=== PATIENT | male | born 1940 | race Caucasian/White ===

== ENCOUNTER 2020-05-09 19:33 | Inpatient (IN) | payer MEDICARE, MEDICAID, SELFPAY ==
[2020-05-09] VITALS (7 sets, daily range): BP systolic 114–150; BP diastolic 59–108; PULSE 95–108; RESP 20–29; TEMP 36.6–37.7; O2SAT 87–98; BMI 34.4; BMI 37.1
--- NOTE | 2020-05-09 19:40 | EKG12_ITS ---
Test Reason : DYSRHYTHMIA Blood Pressure : / mmHG Vent. Rate : 106 BPM Atrial Rate : 106 BPM P-R Int : 186 ms QRS Dur : 096 ms QT Int : 348 ms P-R-T Axes : 052 -07 042 degrees QTc Int : 462 ms Sinus tachycardia with Premature atrial complexes Nonspecific ST and T wave abnormality Abnormal ECG Confirmed by CLAUDIA BEAR, SUREKHA ([id number]), design editor ANDREIA CARLOS ([id number]) on 05/11/2020 10:31:21 AM Referred By: ENIO Confirmed By:SUREKHA TAYLOR MD
--- NOTE | 2020-05-09 19:50 | ED.DCSUM_ITS ---
History of Present Illness Chief Complaint: Shortness of Breath Informant: Patient, Family Onset: Weeks Maximum Severity: Mild Narrative: Patient brought in by daughter who reports for about a week or so he has had cough some shortness of breath poor p.o. 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 His symptoms of shortness of breath lack of p.o. intake intensified today he was brought in for evaluation Past Medical History - Allergies and Home Meds Allergies/Adverse Reactions: Allergies egg Allergy (Verified 04/28/15 10:54) Nausea/Vom/Diarrhea milk Allergy (Verified 04/28/15 16:48) Nausea/Vom/Diarrhea Primary Care Physician: Rosendo Espinosa MD [Primary Care Provider] - Past Medical History: - - Hypertension diabetes COPD home inhaler machine no no need for oxygen Smoking Status: Never smoker - Family History Paternal Family History: Reports: No pertinent history Maternal Family History: Reports: No pertinent history Review of Systems General: Reports: -. Denies: Chills, Fever, Sweats Eyes: Denies: Visual changes - bilaterally, Diplopia ENT: Denies: Rhinorrhea, Sore throat Cardiovascular: Denies: Chest pain, Palpitations Respiratory: Reports: Dyspnea, Cough. Denies: Dyspnea on exertion Gastrointestinal: Denies: Abdominal pain, Nausea, Vomiting, Diarrhea, Melena, Hematochezia Genitourinary: Denies: Dysuria, Hematuria, Frequency Musculoskeletal: Denies: Back pain, Extremity Pain Skin: Denies: Rash, Wounds Neurological: Denies: Headache, Weakness, Numbness Physical Exam Vital Signs/Narrative: Vital Signs Temp Pulse Resp BP Pulse Ox 05/09/20 19:33 98.0 F 108 H 24 H 150/108 H 87 General: Well nourished, Well developed, No Acute Distress Head: Normocephalic, Atraumatic Eyes: Perrl, EOMI ENT: Moist mucous membranes, No rhinorrhea Neck: Supple, Nontender Cardiovascular: Regular rate, Regular rhythm, No murmurs Respiratory: No distress, Chest nontender, Wheezing, Diminished, Decreased Air Movement Abdomen: Soft, Nontender, Nondistended, Normal bowel sounds Back: Nontender, Normal Inspection Extremities: Nontender, No edema Skin: Normal color, No rash Neurological: Alert, Oriented x3, Cranial nerves II-XII grossly intact, Normal Strength, Normal Sensation Psychological: Normal affect, Normal Mood Diagnostic/Tx/Re-eval - Medical Decision Making The patient's pulse ox on room air in triage was 85% he was brought back to the bed he is speaking in full sentences he just complains of diffuse weakness that is generalized the daughter fell than the other information as above the differential is rather extensive so ED evaluation with screening labs chest x- ray Covid flu screens and will reevaluate he is not known to have ever required oxygen he occasionally uses his handheld nebulizer at home The patient's ED screening labs are generally unremarkable creatinine slightly elevated about 1.4, D-dimer elevated at 0.8, EKG shows a sinus tachycardia rate of about 100 no acute injury pattern, nonspecific changes, chest x-ray 1 view to my review shows nothing acute given all the above, he sent for CTA, CTA shows nonspecific findings at the bases no PE, eventually coronavirus screen came back positive All the above is oxygen requirement we placed him on oxygen his pulse ox is now 93% on 2 L he is resting comfortably spoke with the hospitalist team he will be admitted for further management Admit stable Final impression coronavirus 19 pneumonia and infection, acute renal injury, dehydration hypoxemia ED Disposition - Plan for ED Patient: Diagnosis: Coronavirus 19 pneumonia hypoxemia Referrals: Rosendo Espinosa MD [Primary Care Provider] -
--- NOTE | 2020-05-09 20:20 | RAD_ITS ---
STUDY: X-RAY CHEST REASON FOR EXAM: Male, 79 years old. Weakness. Cough. Shortness of breath since Friday. TECHNIQUE: Single AP portable view of the chest. COMPARISON: 04/27/2015. FINDINGS: Persistent elevation of the right hemidiaphragm. There is no new infiltrate or mass. There is no demonstrated pleural abnormality. Stable cardiomegaly. Normal mediastinum and rosie. Normal visualized pulmonary arteries. There is atherosclerotic tortuosity of the aortic arch and descending thoracic aorta. There are diffuse degenerative changes of the visualized thoracic spine. There is degenerative osteoarthritis of the bilateral shoulders. There is no demonstrated abnormality of the visualized soft tissue structures of the upper abdomen. RAD/Chest 1 View (Portable) IMPRESSION: No acute cardiopulmonary disease or major interval change. Electronically Signed: Gibran Aceves DO at 20:46 EST Tel [phone], Service support ,
[2020-05-09 20:50] LABS: Absolute Lymphocyte Count 0.43 X10^3/uL (0.83-4.51); Absolute Neutrophil Count 3.1 X10^3/uL (2.0-7.7); Hematocrit 38.1 % (40-54); Hemoglobin 12.2 g/dL (13.0-16.5); Lymphocyte # 0.43 X10^3/ul (4.0); Lymphocyte % 10.3 % (19-41); Mean Corpuscular Volume 96.7 fL (80-94); Mean Platelet Vol. 10.7 fl (6.2-12.0); Monocyte# 0.69 X10^3/uL; Monocyte% 16.5 % (0-10); NRBC Flagged by Analyzer 0 % (0-5); Neutrophil # 3.05 X10^3/uL (2.7-7.7); Neutrophil % 72.7 % (47-70); POSITIVE DIFFERENTIAL YES; Platelet Count 143 K/mm3 (150-450); RBC Distribution Width SD 49.6 fl (35.1-43.9); Red Blood Count 3.94 M/mm3 (4.6-6.2); White Blood Count 4.2 K/mm3 (4.4-11.0)
[2020-05-09 20:53] LABS: Differential Indicated SCAN CRITERIA MET
[2020-05-09 20:58] LABS: Platelet Estimate ADEQUATE (ADEQ); Red Cell Morphology N CHROM NORMAL (NORM C&C)
[2020-05-09 21:09] LABS: Anisocytosis 1+; Macrocytosis 1+
[2020-05-09 21:12] LABS: Anion Gap 6 (5-15); BUN 22 mg/dL (7-18); BUN/Creat Ratio 16.7 RATIO (10-20); Calcium,Total 8.7 mg/dL (8.5-10.1); Chloride 102 mmol/L (98-107); Creatinine, Serum 1.32 mg/dL (0.70-1.30); EST Glomerular Filtration Rate 56 mL/min (>60); Est Glom Filt Rate - Afr Amer 67 mL/min (>60); Estimated Creatinine Clearance 47.62 ml/min; Glucose 157 mg/dL (74-106); Potassium 3.8 mmol/L (3.5-5.1); Sodium Level 136 mmol/L (136-145)
[2020-05-09 21:26] LABS: BNP,B-Type NATRIURETIC PEPTIDE 30.3 pg/mL (0-100)
[2020-05-09 21:27] LABS: D-Dimer Quantitative (DVT/PE) 0.83 FEU/ug/m (0.27-0.49)
--- NOTE | 2020-05-09 21:40 | CT_ITS ---
STUDY: CTA CHEST REASON FOR EXAM: Male, 79 years old. WEAKNESS, COUGH, SOB, HX CVA, HTN, NH, GB RADIATION DOSAGE (If Supplied By Facility): CTDIvol = ( 19.79 ) mGy, DLP = ( 607.93 ) mGycm TECHNIQUE: The examination was performed with the intravenous administration of IV 100mL [id number]-370. Post-processing of the angiographic images was performed, with multiplanar reformation and 3D reconstruction. Individualized dose optimization techniques were used for this CT. COMPARISON: Chest x-ray of the same day. FINDINGS: Normal enhancement of the main pulmonary artery and right and left pulmonary arteries. There is limited enhancement of the bilateral peripheral pulmonary arteries. There is no demonstrated pulmonary embolism. There is aneurysmal dilatation of the ascending aorta. The transverse diameter of the ascending aorta measures 49 mm''s. There is no demonstrated aortic dissection. There is moderate cardiomegaly. Normal mediastinum. Normal hilar regions. Normal visualized trachea and bronchi. There is elevation of the right hemidiaphragm. There is otherwise normal lung volumes. Bilateral patchy ill-defined pulmonary opacities are seen worse on the right. Findings could represent patchy atelectasis and/or scattered infiltrates. Probable scarring in the right posterior costophrenic angle. No gross effusions. There are degenerative changes of thoracic spine. Normal visualized upper abdomen. CT/CTA Chest W/WO Contrast IMPRESSION: No evidence for PE. Cardiomegaly. Ascending aortic aneurysm without dissection. Markedly elevated left hemidiaphragm with low right lung volume. Scattered bilateral pulmonary opacities worse on the right. Electronically Signed: Sekou Churchill MD at 22:08 EST , Service support ,
[2020-05-09] MEDS: Acetaminophen 500 MG Tablet 1000 MG PO (22:01)
--- NOTE | 2020-05-09 22:26 | HP.PCM_ITS ---
History of Present Illness Date of Admission: 05/09/20 Chief Complaint: shortness of breath, lethargy, cough The patient is a 79 year old M with a PMH as outlined who was admitted via the ED on 05/09/2020 with a complaint of shortness of breath, witha cough as well as poor oral intake and lack of energy. He was found to have sats in the 80s. Review of systems was otherwise negative. COVID test done was positive. Vitals showed temp of 99.9F, with RR of 29, and NJ of 100 as well as blood pressure of 114/59. He required 2 L to go up to 97%. Chemistry showed creatinine of 1.32 but initial troponin was negative and BNP was 30.3. CBC showed WBC of 4.2 and hemoglobin of 12.2 with platelets of 143. Initial D-dimer was elevated at 0.83 and CTA of the chest done showed no evidence of PE but showed cardiomegaly and ascending aortic aneurysm without dissection as well as a markedly elevated left hemidiaphragm with low right lung volume and scattered bilateral pulmonary opacities worse on the right. This x-ray showed no acute cardiopulmonary disease or major interval change. He has been admitted to be managed for acute hypoxic respiratory insufficiency due to COVID-19 infection. 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) Allergies egg Allergy (Verified 04/28/15 10:54) Nausea/Vom/Diarrhea milk Allergy (Verified 04/28/15 16:48) Nausea/Vom/Diarrhea Home Medications: Ambulatory Orders Medication Instructions Recorded Losartan/Hydrochlorothiazide 1 tab PO DAILY 04/27/15 [Hyzaar 50-12.5 Tablet] Pravastatin [Pravachol] 40 mg PO QHS 04/27/15 metFORMIN HCl [Glucophage] 500 mg PO BIDCM 04/27/15 Clopidogrel Bisulfate [Plavix] 75 mg PO DAILY #30 tablet 04/29/15 Metoprolol Tartrate [Lopressor 50 mg PO BID 05/09/20 (Beta Vika)] Omeprazole 20 mg PO DAILY 05/09/20 Pioglitazone [Actos] 15 mg PO DAILY 05/09/20 Sertraline HCl 100 mg PO DAILY 05/09/20 Surgical History: no surgical history Psychiatric History: No pertinent psych hx Lives: With Family Smoking Status: Never smoker Tobacco Use: Non-smoker Alcohol: None Drugs: None - *Family History Paternal History Items: No pertinent history Maternal History Items: No pertinent history Review of Systems Constitutional: Reports: Anorexia, Chills, Fever, Malaise, Weakness Eyes: Denies: Blurred vision HEENT: Denies: Head Aches, Sinus Congestion, Sinus Drainage Cardiovascular: Denies: Chest Pain, Palpitations Respiratory: Reports: Cough, Shortness of Breath, Shortness of breath at rest, Shortness of breath upon exertion, Sputum production Gastrointestinal: Denies: Abdominal Pain, Nausea, Vomiting Genitourinary: Denies: Dysuria Musculoskeletal: Denies: Joint Pain, Joint Tenderness Skin: Denies: Rash, Wounds Neurological: Denies: Numbness, Tingling, Focal weakness Psychiatric: Denies: Anxiety, Depression, Homicidal Ideations, Suicidal Ideations Hematologic/ Lymphatic: Denies: Easy Bruising, Easy Bleeding VTE Information - Inpt Only VTE Present on Admission: No VTE Pharm Prophylaxis ordered?: Yes - Physical Exam Vitals/I&O's: Vital Signs Temp Pulse Resp BP Pulse Ox 99.9 F H 100 29 H 114/59 L 97 05/09/20 22:04 05/09/20 22:04 05/09/20 22:04 05/09/20 22:04 05/09/20 22:04 Oxygen Flow Rate (L/min) 2 Oxygen Delivery Method Nasal Cannula Weight: 240 lb Body Mass Index (BMI) 34.4 Finger Stick Blood Glucose 252 General: Alert, Oriented x3, Cooperative, Lethargic HEENT: Atraumatic, PERRLA, EOMI, Normocephalic Oral: Dry Mucosa Neck: Supple, No JVD, Negative Carotid Bruits Lungs: Short of Breath, Tachypneic, - - diminished breath sounds bibasally, on 2L of oxygen Cardiovascular: Regular rate, Normal S1, Normal S2, No murmurs Abdomen: Bowel Sounds Present, Soft, Non Tender Extremities: No clubbing, No cyanosis, No edema, Capillary Refill Less than 3 Seconds Skin: No rashes, No breakdown Musculoskeletal: No Tenderness to Palpation of Joints or Extremities Lymphatic: No Cervical, Supraclavicular, or Inguinal Adenopathy Neurological: Cranial nerves II-XII grossly intact, Neuro grossly intact, Motor Exam 5/5 strength throughout Psych/Mental Status: Normal Affect, Appropriate, Alert and oriented to time, place, person, mood and affect Microbiology Past 72 Hours 05/09/20 19:57 Mucosa - Nasopharyngeal SARS-CoV-2 Antigen (Rapid) - Final SARS-CoV-2 (COVID 19) 05/09/20 19:57 Mucosa - Nasopharyngeal Influenza Types A,B Direct FA (MARIA DE JESUS) - Final Laboratory Results 05/09/20 20:40: WBC 4.2 L, RBC 3.94 L, Hgb 12.2 L, Hct 38.1 L, MCV 96.7 H, MCH 31.0, MCHC 32.0, RDW Std Deviation 49.6 H, RDW Coeff of Kj 14.0, Plt Count 143 L, MPV 10.7, Immature Gran % (Auto) 0.500, Neut % (Auto) 72.7 H, Lymph % (Auto) 10.3 L, [place] % (Auto) 16.5 H, Eos % (Auto) 0.0, Baso % (Auto) 0.0, Absolute Neuts (auto) 3.1, Absolute Lymphs (auto) 0.43 L, Nucleated RBC % 0, Differential Comment SEE COMMENT, Diff Path Review May foll, Platelet Estimate ADEQUATE, RBC Morphology N CHROM, Anisocytosis 1+, Macrocytosis 1+ 05/09/20 20:40: Sodium 136, Potassium 3.8, Chloride 102, Carbon Dioxide 28.0, Anion Gap 6, BUN 22 H, Creatinine 1.32 H, Estim Creat Clear Calc 47.62, Est GFR (MDRD) Af Amer 67, Est GFR (MDRD) Non-Af 56 L, BUN/Creatinine Ratio 16.7, Glucose 157 H, Calcium 8.7, Troponin I < 0.015 05/09/20 20:40: B-Natriuretic Peptide 30.3 05/09/20 21:01: D-Dimer Quant (PE/DVT) 0.83 H* Diagnostic Data Chest X-Ray 05/09/20 20:20 IMPRESSION: No acute cardiopulmonary disease or major interval change. Electronically Signed: Gibran Aceves DO at 20:46 EST Tel [phone], Service support , Chest CTA 05/09/20 21:40 IMPRESSION: No evidence for PE. Cardiomegaly. Ascending aortic aneurysm without dissection. Markedly elevated left hemidiaphragm with low right lung volume. Scattered bilateral pulmonary opacities worse on the right. Electronically Signed: Sekou Churchill MD at 22:08 EST , Service support , Assessment/Plan All Active Problems Ischemic stroke (Acute) 79 y/o admitted with a complaint of shortness of breath and cough #Acute hypoxic respiratory insufficiency due to COVID 19 infection * admit to covid unit * titrate oxygen to maintain sats >90% * start IV decadrone and remdesivir * consult ID * breathing treatment with bronchodilators * hold off on antibiotics o/a of no evidence of bacterial pneumonia * Hydrate with IV fluids. * #History of CAD: On Plavix. #Type 2 diabetes mellitus: * On Metformin and pioglitazone. Insulin sliding scale. Checks AC at bedtime. * Hold metformin since he just received contrast with his CTA chest #Hyperlipidemia: On statin #Hypertension: On losartan and hydrochlorothiazide. #Depression: Sertraline. DVT prophylaxis: Lovenox 30 mg twice daily COde status: full code * Patient and his daughter counseled extensively about different types of CODE STATUS including full code, DNR CCA and DNR CCA. Patient elects to be full c ode. Total [id number] time 18 minutes. Inpatient E&M: 19579 Init Hosp L3 Procedures: 25129 Advncd Care Plan 30 Min
[2020-05-09 23:28] LABS: Fibrinogen 557 mg/dl (203-444)
[2020-05-09] MEDS: dexAMETHasone 10 MG/ML Vial 6 MG IV (23:48)
[2020-05-09] MEDS: 0.9% Saline Lock 10 ML Syringe IV (23:48)
[2020-05-09] MEDS: 0.9% Normal Saline 1,000 ML 125 ML IV (23:49)
[2020-05-10] VITALS (14 sets, daily range): BP systolic 120–149; BP diastolic 69–88; PULSE 63–89; RESP 17–18; TEMP 36.7–37.1; O2SAT 94–96
[2020-05-10 01:22] LABS: Alkaline Phosphatase 62 U/L (45-117); LDH 175 U/L (87-241)
[2020-05-10 01:24] LABS: Procalcitonin 0.14 ng/mL (0.00-0.09)
[2020-05-10 03:58] LABS: Absolute Lymphocyte Count 0.37 X10^3/uL (0.83-4.51); Absolute Neutrophil Count 3.3 X10^3/uL (2.0-7.7); Hematocrit 39.8 % (40-54); Hemoglobin 12.2 g/dL (13.0-16.5); Lymphocyte # 0.37 X10^3/ul (4.0); Lymphocyte % 9.3 % (19-41); Mean Corp Hgb Conc 30.7 g/dL (32-36); Mean Corpuscular Hgb 30.3 pg (27.0-32.0); Mean Platelet Vol. 10.9 fl (6.2-12.0); Monocyte# 0.33 X10^3/uL; Monocyte% 8.3 % (0-10); NRBC Flagged by Analyzer 0 % (0-5); Neutrophil # 3.25 X10^3/uL (2.7-7.7); Neutrophil % 81.9 % (47-70); POSITIVE DIFFERENTIAL YES; Platelet Count 144 K/mm3 (150-450); RBC Distribution Width SD 51.8 fl (35.1-43.9); Red Blood Count 4.02 M/mm3 (4.6-6.2)
[2020-05-10 04:09] LABS: Differential Indicated SCAN CRITERIA MET
[2020-05-10 04:42] LABS: ALB/GLOB Ratio 0.8 RATIO (0.9-2.4); AST(SGOT) 53 U/L (15-37); Alanine Aminotransfer ALT/SGPT 49 U/L (16-61); Alkaline Phosphatase 66 U/L (45-117); Anion Gap 6 (5-15); BUN 22 mg/dL (7-18); BUN/Creat Ratio 17.9 RATIO (10-20); Calcium,Total 8.2 mg/dL (8.5-10.1); Chloride 104 mmol/L (98-107); Creatinine, Serum 1.23 mg/dL (0.70-1.30); EST Glomerular Filtration Rate 60 mL/min (>60); Est Glom Filt Rate - Afr Amer 73 mL/min (>60); Estimated Creatinine Clearance 51.11 ml/min; Glucose 164 mg/dL (74-106); Potassium 3.8 mmol/L (3.5-5.1); Sodium Level 138 mmol/L (136-145)
[2020-05-10] MEDS: Insulin Lispro 100 UNIT/ML INSULN.PEN SC ×4 (06:30→20:03)
[2020-05-10 06:40] LABS: Bedside Glucose 171 mg/dL (70-110)
--- NOTE | 2020-05-10 07:15 | PCM.PN.HOSP ---
Subjective: Patient fatigued, notes when he attempted to get up and move in the room with staff he was significantly short of breath with accessory muscle usage. He notes ongoing coughing and dyspnea but denies any current fever, chills, nausea, emesis, abdominal pain or diarrhea. He does report decreased appetite. Objective: Physical Examination: General: awake, alert, oriented x 3 and cooperative, seated upright in the [facility] surgical bedside chair, fatigued, ill-appearing. Skin: normal color, turgor, no icterus, cyanosis. HEENT: AT/NC, EOMI, PERRLA, mildly dry MM. Lungs: Diminished breath sounds, greater bases, moderate effort, no rales, ronchi or wheezing. Heart: Regular rate and rhythm; no gallop, rub audible. Abdomen: soft, NTTP, ND, normal BS. Extremities: no cyanosis, clubbing, or edema. Neurological: patient awake, alert, oriented as noted; cognitive function intact; pupils equally reactive to light and accomodation; cranial nerves II-XII grossly normal, moving all 4 extremities, no focal deficits, strength moderately to severely globally decreased secondary to acute presentation. Psychiatric: affect appears fatigued, flat, ill-appearing, no acute evidence of depressive or anxiety feelings. Vitals/I&O's: Vital Signs Temp Pulse Resp BP Pulse Ox 98.1 F 89 18 127/69 H 96 05/10/20 05:47 05/10/20 05:47 05/10/20 05:47 05/10/20 05:47 05/10/20 05:47 Oxygen Flow Rate (L/min) 2 Oxygen Delivery Method Nasal Cannula Weight: 258 lb 13.163 oz Body Mass Index (BMI) 37.1 Finger Stick Blood Glucose 252 Intake and Output for Last 24 Hours 05/08/20 05/09/20 05/10/20 23:59 23:59 23:59 Intake Total 502.08 / 502.08 450 / 450 Output Total 300 / 300 Balance 502.08 / 502.08 150 / 150 Microbiology Past 72 Hours 05/10/20 06:00 Urine, Clean Catch Legionella Antigen - Final 05/10/20 06:00 Urine, Clean Catch Streptococcus pneumoniae Antigen (M - Final 05/09/20 19:57 Mucosa - Nasopharyngeal SARS-CoV-2 Antigen (Rapid) - Final SARS-CoV-2 (COVID 19) 05/09/20 19:57 Mucosa - Nasopharyngeal Influenza Types A,B Direct FA (MARIA DE JESUS) - Final Laboratory Results 05/09/20 20:40: WBC 4.2 L, RBC 3.94 L, Hgb 12.2 L, Hct 38.1 L, MCV 96.7 H, MCH 31.0, MCHC 32.0, RDW Std Deviation 49.6 H, RDW Coeff of Kj 14.0, Plt Count 143 L, MPV 10.7, Immature Gran % (Auto) 0.500, Neut % (Auto) 72.7 H, Lymph % (Auto) 10.3 L, [place] % (Auto) 16.5 H, Eos % (Auto) 0.0, Baso % (Auto) 0.0, Absolute Neuts (auto) 3.1, Absolute Lymphs (auto) 0.43 L, Nucleated RBC % 0, Differential Comment SEE COMMENT, Diff Path Review July foll, Platelet Estimate ADEQUATE, RBC Morphology N CHROM, Anisocytosis 1+, Macrocytosis 1+ 05/09/20 20:40: Sodium 136, Potassium 3.8, Chloride 102, Carbon Dioxide 28.0, Anion Gap 6, BUN 22 H, Creatinine 1.32 H, Estim Creat Clear Calc 47.62, Est GFR (MDRD) Af Amer 67, Est GFR (MDRD) Non-Af 56 L, BUN/Creatinine Ratio 16.7, Glucose 157 H, Calcium 8.7, Troponin I < 0.015 05/09/20 20:40: B-Natriuretic Peptide 30.3 05/09/20 21:01: D-Dimer Quant (PE/DVT) 0.83 H* 05/09/20 21:12: Fibrinogen 557 H 05/10/20 00:50: Alkaline Phosphatase 62, Lactate Dehydrogenase 175, Troponin I 0.024, C-React Prot Ext Range 39.20 H 05/10/20 00:50: Procalcitonin 0.14 H 05/10/20 03:38: WBC 4.0 L, RBC 4.02 L, Hgb 12.2 L, Hct 39.8 L, MCV 99.0 H, MCH 30.3, MCHC 30.7 L, RDW Std Deviation 51.8 H, RDW Coeff of Kj 14.0, Plt Count 144 L, MPV 10.9, Immature Gran % (Auto) 0.500, Neut % (Auto) 81.9 H, Lymph % (Auto) 9.3 L, [place] % (Auto) 8.3, Eos % (Auto) 0.0, Baso % (Auto) 0.0, Absolute Neuts (auto) 3.3, Absolute Lymphs (auto) 0.37 L, Nucleated RBC % 0, Diff Path Review July05/10/20 03:38: Sodium 138, Potassium 3.8, Chloride 104, Carbon Dioxide 28.0, Anion Gap 6, BUN 22 H, Creatinine 1.23, Estim Creat Clear Calc 51.11, Est GFR (MDRD) Af Amer 73, Est GFR (MDRD) Non-Af 60, BUN/Creatinine Ratio 17.9, Glucose 164 H, Calcium 8.2 L, Total Bilirubin 0.40, AST 53 H, ALT 49, Alkaline Phosphatase 66, Total Protein 7.0, Albumin 3.0 L, Globulin 4.0, Albumin/Globulin Ratio 0.8 L 05/10/20 03:38: Troponin I 0.016 05/10/20 03:38: Magnesium Pending 05/10/20 06:29: POC Glucose 171 H Current Medications Acetaminophen (Acetaminophen 325 Mg Tablet) 650 mg PO Q6H PRN PRN PRN Reason: Pain Score 1-10/Temp > 100.7 F Albuterol Sulfate (Albuterol Ih 8.5 Gm (Proair) Inhaler (200 Puffs)) 4 - 8 puff INHALATION Q4H PRN PRN PRN Reason: Dyspnea, wheezing Clopidogrel Bisulfate (Clopidogrel Bisulfate 75 Mg Tablet) 75 mg PO DAILY [facility] Dexamethasone Sodium Phosphate (Dexamethasone 10 Mg/Ml Vial) 6 mg IV DAILY [facility] Last Admin: 05/09/20 23:48 Dose: 6 mg Documented by: Enoxaparin Sodium (Enoxaparin 30 Mg/0.3 Ml Syringe) 30 mg SC BID [facility] Hydralazine HCl (Hydralazine 20 Mg/Ml Vial) 10 mg IV Q4H PRN PRN PRN Reason: SBP > 160 Hydrochlorothiazide (Hydrochlorothiazide 12.5mg) 12.5 mg PO DAILY [facility] Sodium Chloride () 1,000 mls @ 125 mls/hr IV .Q8H [facility] Stop: 05/10/20 15:07 Last Infusion: 05/10/20 01:48 Dose: 125 mls/hr Documented by: Insulin Human Lispro (Insulin Lispro 100 Unit/Ml Insuln.Pen) 0 unit SC ACHS [facility]; Protocol Last Admin: 05/10/20 06:30 Dose: 1 u Documented by: Losartan Potassium (Losartan Potassium 50 Mg Tablet) 50 mg PO DAILY [facility] Metoprolol Tartrate (Metoprolol Tartrate 50 Mg Tablet) 50 mg PO BID [facility] Nitroglycerin (Nitroglycerin (Inpatient Use) 0.4 Mg Tab.Subl) 0.4 mg SUBLINGUAL Q5M PRN PRN Reason: CARDIAC/CHEST PAIN Nystatin (Nystatin Powder 15gm Bottle) 1 applic TOPICAL TID [facility]YRON; Protocol Ondansetron HCl (Ondansetron 4 Mg/2 Ml Vial) 4 mg IV Q8H PRN PRN PRN Reason: NAUSEA/VOMITING Pantoprazole Sodium (Pantoprazole Sodium 20 Mg Tablet) 20 mg PO DAILY [facility] Pioglitazone HCl (Pioglitazone Hydrochloride 15 Mg Tablet) 15 mg PO DAILY [facility] Pravastatin Sodium (Pravastatin 40 Mg Tablet) 40 mg PO QHS [facility] Sertraline HCl (Sertraline 100 Mg Tablet) 100 mg PO DAILY [facility] Sodium Chloride (0.9% Saline Lock 10 Ml Syringe) 10 - 40 ml IV UD PRN PRN Reason: SALINE FLUSH Last Admin: 05/09/20 23:48 Dose: 10 ml Documented by: STROKE Vital Signs/Narrative: Vital Signs Temp Pulse Resp BP Pulse Ox 05/10/20 05:47 98.1 F 89 18 127/69 H 96 05/10/20 03:49 68 Medical Necessity - Tobacco Use Smoking Status: Never smoker Tobacco Use: Non-smoker Assessment/Plan All Active Problems Ischemic stroke (Acute) The patient is a 79 y/o M w/ PMHx: Hx AAA, HTN, HLD, PAD, Diabetes mellitus type II who presents to the [facility] ED on 05/09/20 with history of increasing fatigue, malaise, cough with recent poor oral intake with noted hypoxia with positive Covid testing upon ED presentation. 1. Acute Hypoxia secondary to Acute Bilateral Pneumonia secondary to Acute Viral Syndrome, COVID-19: ED work-up including chest x-ray with no acute cardiopulmonary findings, CTPA with no evidence of pulmonary emboli, evidence cardiomegaly, evidence ascending aortic aneurysm without dissection, markedly elevated left hemidiaphragm with low right lung volume, scattered bilateral pulmonary opacities worse on the right consistent with Covid, D-dimer 0.83, fibrinogen 557, CBC with WC 4.2, hemoglobin 12.2, platelet 143 with lymphopenia, LDH 175, troponin less than 0.015, CRP 39.20, BNP 30.3, procalcitonin 0.14, EKG sinus tachycardia with no acute evidence of ischemia. Patient mated to the Covid unit, maintained on oxygen with wean as tolerated to room air, PRN albuterol, HOB, IS parameters w/ pending sputum cultures, respiratory viral panel, noted negative urine antigens, continue supportive care including q 2 hour turning including prone given no prone bed availability and judicious hydration, closely monitor for worsening status for ARDS and multiorgan failure, will consult Infectious disease, will continue IV decadron x 10 doses and IV remdesivir but defer to discretion of Infectious disease. 2. Hypertension: Continue home regimen including losartan, metoprolol, hydrochlorothiazide with hold parameters, PRN hydralazine. 3. Diabetes mellitus type II: Hold Metformin regimen especially given CTPA recently, ADA diet, accu checks w/ ISS. 4. PAD: We will continue patient home Plavix, metoprolol, losartan, statin therapy. 5. Anxiety and depression: We will continue patient home sertraline regimen. 6. GERD: We will continue patient home PPI. 7. History of AAA: CTPA as noted with ascending aortic aneurysm without evidence dissection, encourage continued outpatient monitoring. 8. DVT prophylaxis: SCDs, Lovenox. 9. CODE STATUS: Full code. Inpatient E&M: 40821 Subs Hosp L2
[2020-05-10 07:42] LABS: Magnesium 1.8 mg/dL (1.6-2.6)
[2020-05-10] MEDS: Pioglitazone Hydrochloride 15 MG Tablet PO (08:33)
[2020-05-10] MEDS: dexAMETHasone 10 MG/ML Vial 6 MG IV (08:34)
[2020-05-10] MEDS: Losartan Potassium 50 MG Tablet PO (08:34)
[2020-05-10] MEDS: Metoprolol Tartrate 50 MG Tablet PO ×2 (08:35→20:04)
[2020-05-10] MEDS: hydroCHLOROthiazide 12.5mg 12.5 MG PO (08:35)
[2020-05-10] MEDS: Enoxaparin 30 MG/0.3 ML Syringe SC ×2 (08:36→20:08)
[2020-05-10] MEDS: Sertraline 100 MG Tablet PO (08:36)
[2020-05-10] MEDS: Clopidogrel Bisulfate 75 MG Tablet PO (08:36)
[2020-05-10] MEDS: 0.9% Saline Lock 10 ML Syringe IV ×2 (08:37→16:48)
[2020-05-10] MEDS: Pantoprazole Sodium 20 MG Tablet PO (08:44)
--- NOTE | 2020-05-10 10:57 | CASEMGMT ---
RN CM Note: attempted to contact patient. Unavailable to speak with CM at this time. Marie PEREIRAN RN ACM
[2020-05-10 13:32] LABS: Pathologist Review Reviewed
[2020-05-10 13:34] LABS: Pathologist Review Reviewed
[2020-05-10 13:45] LABS: Bedside Glucose 189 mg/dL (70-110)
[2020-05-10] MEDS: Nystatin Powder 15gm Bottle 1 APPLIC TOPICAL ×2 (15:04→20:08)
--- NOTE | 2020-05-10 15:37 | PCM.HP.ID ---
Problem List (1) COVID-19 Status: Acute Reason for Consult: covid Consulted by: Dr. Hernandez History of Present Illness: The patient is a 79 year old M presented with about a week of not feeling well, chills, headache, cough, and progressive dyspnea. was sick first, now improving. He has some change in taste and smell. Came to ED, sats of 87%, admitted on dex and remdesivir. Feeling a little better today. Full ROS performed and neg except as noted above. 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) Allergies/Adverse Reactions: Allergies egg Allergy (Verified 04/28/15 10:54) Nausea/Vom/Diarrhea milk Allergy (Verified 04/28/15 16:48) Nausea/Vom/Diarrhea Home Medications: Ambulatory Orders Medication Instructions Recorded Losartan/Hydrochlorothiazide 1 tab PO DAILY 04/27/15 [Hyzaar 50-12.5 Tablet] Pravastatin [Pravachol] 40 mg PO QHS 04/27/15 metFORMIN HCl [Glucophage] 500 mg PO BIDCM 04/27/15 Clopidogrel Bisulfate [Plavix] 75 mg PO DAILY #30 tablet 04/29/15 Metoprolol Tartrate [Lopressor 50 mg PO BID 05/09/20 (Beta Vika)] Omeprazole 20 mg PO DAILY 05/09/20 Pioglitazone [Actos] 15 mg PO DAILY 05/09/20 Sertraline HCl 100 mg PO DAILY 05/09/20 - Social History Tobacco Use: non-smoker Vital Signs Temp Pulse Resp BP Pulse Ox 98.5 F 63 18 120/70 94 05/10/20 15:05 05/10/20 15:05 05/10/20 15:05 05/10/20 15:05 05/10/20 15:05 Oxygen Flow Rate (L/min) 2 Oxygen Delivery Method Nasal Cannula Weight: 117.4 kg Body Mass Index (BMI) 37.1 Finger Stick Blood Glucose 252 Microbiology Past 72 Hours 05/10/20 08:44 Gram Stain - Final Sputum, Expectorated/Coughed 05/10/20 07:35 Respiratory Panel (PCR) - Final Mucosa - Nasopharyngeal 05/10/20 06:00 Legionella Antigen - Final Urine, Clean Catch Streptococcus pneumoniae Antigen (M - Final 05/09/20 19:57 SARS-CoV-2 Antigen (Rapid) - Final Mucosa - Nasopharyngeal SARS-CoV-2 (COVID 19) Influenza Types A,B Direct FA (MARIA DE JESUS) - Final Laboratory Tests Past 24 Hrs 05/09/20 05/09/20 05/09/20 20:40 20:40 20:40 WBC 4.2 L RBC 3.94 L Hgb 12.2 L Hct 38.1 L MCV 96.7 H MCH 31.0 MCHC 32.0 RDW Std Deviation 49.6 H RDW Coeff of Kj 14.0 Plt Count 143 L MPV 10.7 Immature Gran % (Auto) 0.500 Neut % (Auto) 72.7 H Lymph % (Auto) 10.3 L Castro % (Auto) 16.5 H Eos % (Auto) 0.0 Baso % (Auto) 0.0 Absolute Neuts (auto) 3.1 Absolute Lymphs (auto) 0.43 L Nucleated RBC % 0 Differential Comment SEE COMMENT Diff Path Review Reviewed Platelet Estimate ADEQUATE RBC Morphology N CHROM Anisocytosis 1+ Macrocytosis 1+ Fibrinogen D-Dimer Quant (PE/DVT) Sodium 136 Potassium 3.8 Chloride 102 Carbon Dioxide 28.0 Anion Gap 6 BUN 22 H Creatinine 1.32 H Estim Creat Clear Calc 47.62 Est GFR (MDRD) Af Amer 67 Est GFR (MDRD) Non-Af 56 L BUN/Creatinine Ratio 16.7 Glucose 157 H Calcium 8.7 Magnesium Total Bilirubin AST ALT Alkaline Phosphatase Lactate Dehydrogenase Troponin I < 0.015 C-React Prot Ext Range B-Natriuretic Peptide 30.3 Total Protein Albumin Globulin Albumin/Globulin Ratio Procalcitonin 05/09/20 05/09/20 05/10/20 21:01 21:12 00:50 WBC RBC Hgb Hct MCV MCH MCHC RDW Std Deviation RDW Coeff of Kj Plt Count MPV Immature Gran % (Auto) Neut % (Auto) Lymph % (Auto) Castro % (Auto) Eos % (Auto) Baso % (Auto) Absolute Neuts (auto) Absolute Lymphs (auto) Nucleated RBC % Differential Comment Diff Path Review Platelet Estimate RBC Morphology Anisocytosis Macrocytosis Fibrinogen 557 H D-Dimer Quant (PE/DVT) 0.83 H* Sodium Potassium Chloride Carbon Dioxide Anion Gap BUN Creatinine Estim Creat Clear Calc Est GFR (MDRD) Af Amer Est GFR (MDRD) Non-Af BUN/Creatinine Ratio Glucose Calcium Magnesium Total Bilirubin AST ALT Alkaline Phosphatase 62 Lactate Dehydrogenase 175 Troponin I 0.024 C-React Prot Ext Range 39.20 H B-Natriuretic Peptide Total Protein Albumin Globulin Albumin/Globulin Ratio Procalcitonin 05/10/20 05/10/20 05/10/20 00:50 03:38 03:38 WBC 4.0 L RBC 4.02 L Hgb 12.2 L Hct 39.8 L MCV 99.0 H MCH 30.3 MCHC 30.7 L RDW Std Deviation 51.8 H RDW Coeff of Kj 14.0 Plt Count 144 L MPV 10.9 Immature Gran % (Auto) 0.500 Neut % (Auto) 81.9 H Lymph % (Auto) 9.3 L Castro % (Auto) 8.3 Eos % (Auto) 0.0 Baso % (Auto) 0.0 Absolute Neuts (auto) 3.3 Absolute Lymphs (auto) 0.37 L Nucleated RBC % 0 Differential Comment Diff Path Review Reviewed Platelet Estimate RBC Morphology Anisocytosis Macrocytosis Fibrinogen D-Dimer Quant (PE/DVT) Sodium 138 Potassium 3.8 Chloride 104 Carbon Dioxide 28.0 Anion Gap 6 BUN 22 H Creatinine 1.23 Estim Creat Clear Calc 51.11 Est GFR (MDRD) Af Amer 73 Est GFR (MDRD) Non-Af 60 BUN/Creatinine Ratio 17.9 Glucose 164 H Calcium 8.2 L Magnesium Total Bilirubin 0.40 AST 53 H ALT 49 Alkaline Phosphatase 66 Lactate Dehydrogenase Troponin I C-React Prot Ext Range B-Natriuretic Peptide Total Protein 7.0 Albumin 3.0 L Globulin 4.0 Albumin/Globulin Ratio 0.8 L Procalcitonin 0.14 H 05/10/20 05/10/20 03:38 03:38 WBC RBC Hgb Hct MCV MCH MCHC RDW Std Deviation RDW Coeff of Kj Plt Count MPV Immature Gran % (Auto) Neut % (Auto) Lymph % (Auto) Castro % (Auto) Eos % (Auto) Baso % (Auto) Absolute Neuts (auto) Absolute Lymphs (auto) Nucleated RBC % Differential Comment Diff Path Review Platelet Estimate RBC Morphology Anisocytosis Macrocytosis Fibrinogen D-Dimer Quant (PE/DVT) Sodium Potassium Chloride Carbon Dioxide Anion Gap BUN Creatinine Estim Creat Clear Calc Est GFR (MDRD) Af Amer Est GFR (MDRD) Non-Af BUN/Creatinine Ratio Glucose Calcium Magnesium 1.8 Total Bilirubin AST ALT Alkaline Phosphatase Lactate Dehydrogenase Troponin I 0.016 C-React Prot Ext Range B-Natriuretic Peptide Total Protein Albumin Globulin Albumin/Globulin Ratio Procalcitonin - Other Studies Radiology: [] reviewed Other Studies: [] Route of nutrition/ use of supplements: [] Nutritional Intake: [] IV Site: [] Mack Catheter: [] - Physical Exam General: Alert, Cooperative, No apparent distress HEENT: Atraumatic, PERRLA, EOMI Neck: Supple, No Nodes Lungs: Diminished Cardiovascular: Regular rate, Regular Rhythm Abdomen: Soft, Non Tender, Non-Distended Extremities: No edema Skin: No rashes IV Site: Peripheral, without redness Musculoskeletal: No Tenderness to Palpation of Joints or Extremities Neurological: Cranial nerves II-XII grossly intact - Assessment/Plan Antibiotics: [] Assessment/Plan: [] covid with hypoxia - sx started about a week prior to admit, recently sick and starting to recover. D-dimer 0.8. Will treat with 10 days of dex, and will continue remdesivir. On lovenox 30mg bid. CT showed no PE. Plan on 20 days total of quarantine. Will follow, thank you.
[2020-05-10 17:30] LABS: Bedside Glucose 212 mg/dL (70-110)
[2020-05-10] MEDS: Pravastatin 40 MG Tablet PO (20:03)
[2020-05-11] VITALS (17 sets, daily range): BP systolic 114–140; BP diastolic 59–84; PULSE 57–85; RESP 18–20; TEMP 36.7–37; O2SAT 87–96
[2020-05-11 04:21] LABS: Bedside Glucose 215 mg/dL (70-110)
[2020-05-11 06:35] LABS: Bedside Glucose 115 mg/dL (70-110)
[2020-05-11 06:39] LABS: Absolute Lymphocyte Count 0.78 X10^3/uL (0.83-4.51); Absolute Neutrophil Count 3.2 X10^3/uL (2.0-7.7); Basophil# 0.01 X10^3/uL; Basophil% 0.2 % (0-1); Hematocrit 40.4 % (40-54); Hemoglobin 12.6 g/dL (13.0-16.5); Lymphocyte # 0.78 X10^3/ul (4.0); Lymphocyte % 16.5 % (19-41); Mean Corp Hgb Conc 31.2 g/dL (32-36); Mean Corpuscular Hgb 30.6 pg (27.0-32.0); Mean Corpuscular Volume 98.1 fL (80-94); Mean Platelet Vol. 10.4 fl (6.2-12.0); Monocyte# 0.74 X10^3/uL; Monocyte% 15.6 % (0-10); NRBC Flagged by Analyzer 0 % (0-5); Neutrophil # 3.17 X10^3/uL (2.7-7.7); Neutrophil % 67.1 % (47-70); Platelet Count 184 K/mm3 (150-450); RBC Distribution Width SD 50.6 fl (35.1-43.9); Red Blood Count 4.12 M/mm3 (4.6-6.2); White Blood Count 4.7 K/mm3 (4.4-11.0)
[2020-05-11] MEDS: Nystatin Powder 15gm Bottle 1 APPLIC TOPICAL ×3 (06:44→20:39)
[2020-05-11 07:10] LABS: ALB/GLOB Ratio 0.7 RATIO (0.9-2.4); AST(SGOT) 47 U/L (15-37); Alanine Aminotransfer ALT/SGPT 53 U/L (16-61); Albumin, Serum 2.9 g/dL (3.2-5.0); Alkaline Phosphatase 63 U/L (45-117); Anion Gap 4 (5-15); BUN 27 mg/dL (7-18); BUN/Creat Ratio 24.8 RATIO (10-20); Calcium,Total 8.7 mg/dL (8.5-10.1); Chloride 104 mmol/L (98-107); Creatinine, Serum 1.09 mg/dL (0.70-1.30); EST Glomerular Filtration Rate 70 mL/min (>60); Est Glom Filt Rate - Afr Amer 84 mL/min (>60); Estimated Creatinine Clearance 57.67 ml/min; Globulin 4.1 g/dL (2.2-4.2); Glucose 133 mg/dL (74-106); Potassium 3.9 mmol/L (3.5-5.1); Sodium Level 138 mmol/L (136-145)
--- NOTE | 2020-05-11 07:29 | PCS.PANDOC ---
PANDEMIC DOCUMENTATION INITIATED: Date: 03/06/2020 Time:
--- NOTE | 2020-05-11 07:39 | PCM.PN.HOSP ---
Patient Problems: Active and Suspected Problems COVID-19 (Acute) Subjective: Patient overnight with no acute events per self and per nursing report however he is significantly fatigued and extremely debilitated requiring significant assistance. Patient's elderly at home and following lengthy discussions patient is amenable to skilled facility especially given his current status, likely oxygen needs at discharge and debility requiring notable assistance to perform daily activities. Patient does report that he is coughing less and breathing has improved but still significantly limited especially with activity. Patient denies fevers, chills, nausea, emesis, abdominal pain, chest pain. Objective: Physical Examination: General: awake, alert, oriented x 3 and cooperative, seated upright in the [facility] medical surgical bedside chair, fatigued but less ill-appearing than day prior. Skin: normal color, turgor, no icterus, cyanosis. HEENT: AT/NC, EOMI, PERRLA, improved MMM. Lungs: Diminished breath sounds, greater bases, moderate effort, no rales, ronchi or wheezing. Heart: Regular rate and rhythm; no gallop, rub audible. Abdomen: soft, NTTP, ND, normal BS. Extremities: no cyanosis, clubbing, or edema. Neurological: patient awake, alert, oriented as noted; cognitive function intact; pupils equally reactive to light and accomodation; cranial nerves II-XII grossly normal, moving all 4 extremities, no focal deficits, strength remains moderately to severely globally decreased secondary to acute presentation. Psychiatric: affect appears fatigued, mildly irritable today, no acute evidence of depressive or anxiety feelings. Vitals/I&O's: Vital Signs Temp Pulse Resp BP Pulse Ox 98.5 F 71 19 H 140/66 H 95 05/11/20 02:15 05/11/20 07:17 05/11/20 05:00 05/11/20 02:15 05/11/20 05:00 Oxygen Flow Rate (L/min) 2 Oxygen Delivery Method Nasal Cannula Weight: 258 lb 13.163 oz Body Mass Index (BMI) 37.1 Finger Stick Blood Glucose 252 Intake and Output for Last 24 Hours 05/09/20 05/10/20 05/11/20 23:59 23:59 23:59 Intake Total 502.08 / 502.08 2317.92 / 2557.92 440 / 440 Output Total 450 / 450 350 / 350 Balance 502.08 / 502.08 1867.92 / 2107.92 90 / 90 Microbiology Past 72 Hours 05/10/20 08:44 Sputum, Expectorated/Coughed Gram Stain - Final 05/10/20 07:35 Mucosa - Nasopharyngeal Respiratory Panel (PCR) - Final 05/10/20 06:00 Urine, Clean Catch Legionella Antigen - Final 05/10/20 06:00 Urine, Clean Catch Streptococcus pneumoniae Antigen (M - Final 05/09/20 19:57 Mucosa - Nasopharyngeal SARS-CoV-2 Antigen (Rapid) - Final SARS-CoV-2 (COVID 19) 05/09/20 19:57 Mucosa - Nasopharyngeal Influenza Types A,B Direct FA (MARIA DE JESUS) - Final Laboratory Results 05/09/20 20:40: Diff Path Review Reviewed 05/10/20 03:38: Diff Path Review Reviewed 05/10/20 03:38: Magnesium 1.8 05/10/20 10:49: POC Glucose 189 H 05/10/20 16:36: POC Glucose 212 H 05/10/20 20:02: POC Glucose 215 H 05/11/20 06:25: WBC 4.7, RBC 4.12 L, Hgb 12.6 L, Hct 40.4, MCV 98.1 H, MCH 30.6, MCHC 31.2 L, RDW Std Deviation 50.6 H, RDW Coeff of Kj 14.0, Plt Count 184, MPV 10.4, Immature Gran % (Auto) 0.600, Neut % (Auto) 67.1, Lymph % (Auto) 16.5 L, [place] % (Auto) 15.6 H, Eos % (Auto) 0.0, Baso % (Auto) 0.2, Absolute Neuts (auto) 3.2, Absolute Lymphs (auto) 0.78 L, Nucleated RBC % 0 05/11/20 06:25: Sodium 138, Potassium 3.9, Chloride 104, Carbon Dioxide 30.0, Anion Gap 4 L, BUN 27 H, Creatinine 1.09, Estim Creat Clear Calc 57.67, Est GFR (MDRD) Af Amer 84, Est GFR (MDRD) Non-Af 70, BUN/Creatinine Ratio 24.8 H, Glucose 133 H, Calcium 8.7, Total Bilirubin 0.30, AST 47 H, ALT 53, Alkaline Phosphatase 63, Total Protein 7.0, Albumin 2.9 L, Globulin 4.1, Albumin/Globulin Ratio 0.7 L 05/11/20 06:28: POC Glucose 115 H Current Medications Acetaminophen (Acetaminophen 325 Mg Tablet) 650 mg PO Q6H PRN PRN PRN Reason: Pain Score 1-10/Temp > 100.7 F Albuterol Sulfate (Albuterol Sulfate 8 Gm Inhaler (60 Puffs)) 4 - 8 puff INHALATION Q4H PRN PRN PRN Reason: Dyspnea, wheezing Clopidogrel Bisulfate (Clopidogrel Bisulfate 75 Mg Tablet) 75 mg PO DAILY [facility] Last Admin: 05/10/20 08:36 Dose: 75 mg Documented by: Dexamethasone (Dexamethasone 4 Mg Tablet) 6 mg PO DAILY [facility] Stop: 05/18/20 10:01 Enoxaparin Sodium (Enoxaparin 30 Mg/0.3 Ml Syringe) 30 mg SC BID [facility] Last Admin: 05/10/20 20:08 Dose: 30 mg Documented by: Hydralazine HCl (Hydralazine 20 Mg/Ml Vial) 10 mg IV Q4H PRN PRN PRN Reason: SBP > 160 Hydrochlorothiazide (Hydrochlorothiazide 12.5mg) 12.5 mg PO DAILY [facility] Last Admin: 05/10/20 08:35 Dose: 12.5 mg Documented by: Remdesivir 100 mg/ Sodium (Chloride) 250 mls @ 125 mls/hr IV DAILY [facility]; Protocol Stop: 05/13/20 11:59 Last Infusion: 05/10/20 20:11 Dose: Infused Documented by: Insulin Human Lispro (Insulin Lispro 100 Unit/Ml Insuln.Pen) 0 unit SC ACHS [facility]; Protocol Last Admin: 05/11/20 07:10 Dose: Not Given Documented by: Losartan Potassium (Losartan Potassium 50 Mg Tablet) 50 mg PO DAILY [facility] Last Admin: 05/10/20 08:34 Dose: 50 mg Documented by: Metoprolol Tartrate (Metoprolol Tartrate 50 Mg Tablet) 50 mg PO BID [facility] Last Admin: 05/10/20 20:04 Dose: 50 mg Documented by: Nitroglycerin (Nitroglycerin (Inpatient Use) 0.4 Mg Tab.Subl) 0.4 mg SUBLINGUAL Q5M PRN PRN Reason: CARDIAC/CHEST PAIN Nystatin (Nystatin Powder 15gm Bottle) 1 applic TOPICAL TID [facility]; Protocol Last Admin: 05/11/20 06:44 Dose: 1 applicatio Documented by: Ondansetron HCl (Ondansetron 4 Mg/2 Ml Vial) 4 mg IV Q8H PRN PRN PRN Reason: NAUSEA/VOMITING Pantoprazole Sodium (Pantoprazole Sodium 20 Mg Tablet) 20 mg PO DAILY [facility] Last Admin: 05/10/20 08:44 Dose: 20 mg Documented by: Pioglitazone HCl (Pioglitazone Hydrochloride 15 Mg Tablet) 15 mg PO DAILY [facility] Last Admin: 05/10/20 08:33 Dose: 15 mg Documented by: Pravastatin Sodium (Pravastatin 40 Mg Tablet) 40 mg PO QHS [facility] Last Admin: 05/10/20 20:03 Dose: 40 mg Documented by: Sertraline HCl (Sertraline 100 Mg Tablet) 100 mg PO DAILY [facility] Last Admin: 05/10/20 08:36 Dose: 100 mg Documented by: Sodium Chloride (0.9% Saline Lock 10 Ml Syringe) 10 - 40 ml IV UD PRN PRN Reason: SALINE FLUSH Last Admin: 05/10/20 16:48 Dose: 10 ml Documented by: STROKE Vital Signs/Narrative: Vital Signs Pulse Resp Pulse Ox 05/11/20 07:17 71 05/11/20 06:00 59 L 05/11/20 05:00 19 H 95 Medical Necessity - Tobacco Use Smoking Status: Never smoker Tobacco Use: Non-smoker Assessment/Plan All Active Problems COVID-19 (Acute) Ischemic stroke (Acute) The patient is a 79 y/o M w/ PMHx: Hx AAA, HTN, HLD, PAD, Diabetes mellitus type II who presents to the [facility] ED on 05/09/20 with history of increasing fatigue, malaise, cough with recent poor oral intake with noted hypoxia with positive Covid testing upon ED presentation. 1. Acute Hypoxia secondary to Acute Bilateral Pneumonia secondary to Acute Viral Syndrome, COVID-19: ED work-up including chest x-ray with no acute cardiopulmonary findings, CTPA with no evidence of pulmonary emboli, evidence cardiomegaly, evidence ascending aortic aneurysm without dissection, markedly elevated left hemidiaphragm with low right lung volume, scattered bilateral pulmonary opacities worse on the right consistent with Covid, D-dimer 0.83, fibrinogen 557, CBC with WC 4.2, hemoglobin 12.2, platelet 143 with lymphopenia, LDH 175, troponin less than 0.015, CRP 39.20, BNP 30.3, procalcitonin 0.14, EKG sinus tachycardia with no acute evidence of ischemia. Patient admitted to the Covid unit, maintained on oxygen with wean as tolerated to room air, PRN albuterol, HOB, IS parameters w/ preliminary sputum culture with normal respiratory kobi with final pending, respiratory viral panel negative, noted negative urine antigens, continue supportive care including q 2 hour turning including prone given no prone bed availability and judicious hydration, closely monitor for worsening status for ARDS and multiorgan failure, infectious disease consulted and following with requested 20 total days of quarantine, continue plan 10 days of dexamethasone and remdesivir, maintained on Lovenox 30 mg twice daily with CTPA with no evidence of acute pulmonary emboli. 2. Hypertension: Continue home regimen including losartan, metoprolol, hydrochlorothiazide with hold parameters, PRN hydralazine. 3. Diabetes mellitus type II: Hold Metformin regimen especially given CTPA recently, ADA diet, accu checks w/ ISS. 4. PAD: We will continue patient home Plavix, metoprolol, losartan, statin therapy. 5. Anxiety and depression: We will continue patient home sertraline regimen. 6. GERD: We will continue patient home PPI. 7. History of AAA: CTPA as noted with ascending aortic aneurysm without evidence dissection, encourage continued outpatient monitoring. 8. DVT prophylaxis: SCDs, Lovenox. 9. CODE STATUS: Full code. Inpatient E&M: 40425 Subs Hosp L2
[2020-05-11] MEDS: Enoxaparin 30 MG/0.3 ML Syringe SC ×2 (09:41→20:53)
[2020-05-11] MEDS: Pioglitazone Hydrochloride 15 MG Tablet PO (09:42)
[2020-05-11] MEDS: dexAMETHasone 4 MG Tablet 6 MG PO (09:42)
[2020-05-11] MEDS: Pantoprazole Sodium 20 MG Tablet PO (09:42)
[2020-05-11] MEDS: 0.9% Saline Lock 10 ML Syringe IV (09:43)
[2020-05-11] MEDS: hydroCHLOROthiazide 12.5mg 12.5 MG PO (09:43)
[2020-05-11] MEDS: Metoprolol Tartrate 50 MG Tablet PO ×2 (09:43→20:37)
[2020-05-11] MEDS: Sertraline 100 MG Tablet PO (09:43)
[2020-05-11] MEDS: Clopidogrel Bisulfate 75 MG Tablet PO (09:43)
[2020-05-11] MEDS: Losartan Potassium 50 MG Tablet PO (09:43)
--- NOTE | 2020-05-11 11:15 | CASEMGMT ---
Social Work Received phone call from Lalitha at [facility] whom pt has services through. Lalitha is [employer] and pt has a medical alert and home delivered meals. Pt is eligible for home health aids but has never felt the need for them. SW will follow for d/c needs and notify [facility] of discharge plans. MALENA Banks
--- NOTE | 2020-05-11 11:42 | CASEMGMT ---
RN CM Assessment Note Chart reviewed. Presentation: shortness of breath, lack of energy. Diagnosis: Covid 19 PCP: Dr. Rosendo Espinosa Insurance: ;[facility] Preferred Pharmacy: unknown Prescription Benefit: yes LNOK: [facility] Living Arrangements: Lives in one story home with . Was moderately independent. Was mod-independent with ADL's prior to admission and did most home chores. Tranportation: does not drive DME: wheeled walker, raised toilet seat, extended tub bench. HHC: patient active with [facility]- medical alert and meals. Patient DC Goals: undetermined DC Plan: undetermined. PT/OT evals completed and patient ambulated 4 feet. May need SNF on dc. CM available for discharge planning coordination. Contact CM for any concerns/needs that may arise. Marie ESCOBAR RN ACM
[2020-05-11 11:50] LABS: Bedside Glucose 133 mg/dL (70-110)
--- NOTE | 2020-05-11 12:57 | CASEMGMT ---
Addendum entered by Supriya Hawkins 05/11/20 14:07: Social Work Return call from [facility] and they are able to accept pt. Insurance preauth will need obtained prior to pt discharge. Phone call to pt and updated and she is understanding and agreeable. Plan: [facility], pending precMALENA Onofre Original Note: Social Work SW spoke with therapists and physician who are recommending short term SNF placement prior to return home. SW placed call to pt room and spoke with pt. Pt is hard of hearing but does seem to understand SW. Pt informed of reason for placement and options that are in network with insurance and would met medical needs. Pt stating he would like to stay local but had no preference. Pt gave SW permission to call . Phone call to pt Alise and explained recommendations for SNF. Alise is agreeable. SW provided names of facilities including medicare star ratings, consistent with pt preferred geographic region, medical needs and insurance network. Alise's first choice is [facility]. Phone call to Iris at [facility] and they do have beds available. Referral faxed. SW will await determination if they can accept pt. Plan: [facility], pending acceptance and insurance precert MALENA Banks
[2020-05-11] MEDS: Insulin Lispro 100 UNIT/ML INSULN.PEN SC ×2 (16:44→20:39)
[2020-05-11 20:20] LABS: Bedside Glucose 188 mg/dL (70-110)
[2020-05-11] MEDS: Pravastatin 40 MG Tablet PO (20:37)
[2020-05-11 23:06] LABS: Bedside Glucose 176 mg/dL (70-110)
[2020-05-12] VITALS (12 sets, daily range): BP systolic 109–139; BP diastolic 64–77; PULSE 58–75; RESP 18–20; TEMP 36.7–36.9; O2SAT 84–96
[2020-05-12 06:00] LABS: Absolute Lymphocyte Count 0.79 X10^3/uL (0.83-4.51); Absolute Neutrophil Count 3.8 X10^3/uL (2.0-7.7); Basophil# 0.01 X10^3/uL; Basophil% 0.2 % (0-1); Hematocrit 38.2 % (40-54); Hemoglobin 11.9 g/dL (13.0-16.5); Lymphocyte # 0.79 X10^3/ul (4.0); Lymphocyte % 14.5 % (19-41); Mean Corp Hgb Conc 31.2 g/dL (32-36); Mean Corpuscular Hgb 30.4 pg (27.0-32.0); Mean Corpuscular Volume 97.7 fL (80-94); Mean Platelet Vol. 10.6 fl (6.2-12.0); Monocyte# 0.86 X10^3/uL; Monocyte% 15.8 % (0-10); NRBC Flagged by Analyzer 0 % (0-5); Neutrophil # 3.76 X10^3/uL (2.7-7.7); Neutrophil % 69.1 % (47-70); Platelet Count 199 K/mm3 (150-450); RBC Distribution Width CV 13.9 % (11.6-14.6); RBC Distribution Width SD 49.3 fl (35.1-43.9); Red Blood Count 3.91 M/mm3 (4.6-6.2); White Blood Count 5.4 K/mm3 (4.4-11.0)
[2020-05-12 06:30] LABS: ALB/GLOB Ratio 0.7 RATIO (0.9-2.4); AST(SGOT) 39 U/L (15-37); Alanine Aminotransfer ALT/SGPT 47 U/L (16-61); Albumin, Serum 2.8 g/dL (3.2-5.0); Alkaline Phosphatase 59 U/L (45-117); Anion Gap 5 (5-15); BUN 29 mg/dL (7-18); BUN/Creat Ratio 29.3 RATIO (10-20); Calcium,Total 8.5 mg/dL (8.5-10.1); Chloride 103 mmol/L (98-107); Creatinine, Serum 0.99 mg/dL (0.70-1.30); EST Glomerular Filtration Rate 78 mL/min (>60); Est Glom Filt Rate - Afr Amer 94 mL/min (>60); Globulin 3.9 g/dL (2.2-4.2); Glucose 132 mg/dL (74-106); Potassium 4.1 mmol/L (3.5-5.1); Protein, Total 6.7 g/dL (6.4-8.2); Sodium Level 136 mmol/L (136-145)
[2020-05-12] MEDS: Nystatin Powder 15gm Bottle 1 APPLIC TOPICAL (06:39)
--- NOTE | 2020-05-12 07:04 | PCM.PN.HOSP ---
Patient Problems: Active and Suspected Problems COVID-19 (Acute) Vitals/I&O's: Vital Signs Temp Pulse Resp BP Pulse Ox 98.1 F 58 L 18 109/77 94 05/12/20 02:45 05/12/20 06:00 05/12/20 05:00 05/12/20 02:45 05/12/20 02:45 Oxygen Flow Rate (L/min) [ 3 AMBULATION with Oxygen] Oxygen Flow Rate (L/min) [ 0 AMBULATING on Room Air] Oxygen Flow Rate (L/min) [At 0 REST on Room Air] Oxygen Flow Rate (L/min) 2 Oxygen Delivery Method Nasal Cannula Weight: 258 lb 13.163 oz Body Mass Index (BMI) 37.1 Finger Stick Blood Glucose 252 Intake and Output for Last 24 Hours 05/10/20 05/11/20 05/12/20 23:59 23:59 23:59 Intake Total 2317.92 / 2557.92 1490 / 1730 420 / 420 Output Total 450 / 450 675 / 1025 800 / 800 Balance 1867.92 / 2107.92 815 / 705 -380 / -380 Microbiology Past 72 Hours 05/10/20 08:44 Sputum, Expectorated/Coughed Gram Stain - Final 05/10/20 08:44 Sputum, Expectorated/Coughed Respiratory Culture - Preliminary Appears to be normal respiratory kobi. Further studies to follow. 05/10/20 07:35 Mucosa - Nasopharyngeal Respiratory Panel (PCR) - Final 05/10/20 06:00 Urine, Clean Catch Legionella Antigen - Final 05/10/20 06:00 Urine, Clean Catch Streptococcus pneumoniae Antigen (M - Final 05/09/20 19:57 Mucosa - Nasopharyngeal SARS-CoV-2 Antigen (Rapid) - Final SARS-CoV-2 (COVID 19) 05/09/20 19:57 Mucosa - Nasopharyngeal Influenza Types A,B Direct FA (MARIA DE JESUS) - Final Laboratory Results 05/11/20 06:25: Sodium 138, Potassium 3.9, Chloride 104, Carbon Dioxide 30.0, Anion Gap 4 L, BUN 27 H, Creatinine 1.09, Estim Creat Clear Calc 57.67, Est GFR (MDRD) Af Amer 84, Est GFR (MDRD) Non-Af 70, BUN/Creatinine Ratio 24.8 H, Glucose 133 H, Calcium 8.7, Total Bilirubin 0.30, AST 47 H, ALT 53, Alkaline Phosphatase 63, Total Protein 7.0, Albumin 2.9 L, Globulin 4.1, Albumin/Globulin Ratio 0.7 L 05/11/20 11:05: POC Glucose 133 H 05/11/20 16:42: POC Glucose 188 H 05/11/20 20:35: POC Glucose 176 H 05/12/20 05:30: WBC 5.4, RBC 3.91 L, Hgb 11.9 L, Hct 38.2 L, MCV 97.7 H, MCH 30.4, MCHC 31.2 L, RDW Std Deviation 49.3 H, RDW Coeff of Kj 13.9, Plt Count 199, MPV 10.6, Immature Gran % (Auto) 0.400, Neut % (Auto) 69.1, Lymph % (Auto) 14.5 L, [place] % (Auto) 15.8 H, Eos % (Auto) 0.0, Baso % (Auto) 0.2, Absolute Neuts (auto) 3.8, Absolute Lymphs (auto) 0.79 L, Nucleated RBC % 0 05/12/20 05:30: Sodium 136, Potassium 4.1, Chloride 103, Carbon Dioxide 28.0, Anion Gap 5, BUN 29 H, Creatinine 0.99, Estim Creat Clear Calc 63.50, Est GFR (MDRD) Af Amer 94, Est GFR (MDRD) Non-Af 78, BUN/Creatinine Ratio 29.3 H, Glucose 132 H, Calcium 8.5, Total Bilirubin 0.30, AST 39 H, ALT 47, Alkaline Phosphatase 59, Total Protein 6.7, Albumin 2.8 L, Globulin 3.9, Albumin/Globulin Ratio 0.7 L Current Medications Acetaminophen (Acetaminophen 325 Mg Tablet) 650 mg PO Q6H PRN PRN PRN Reason: Pain Score 1-10/Temp > 100.7 F Albuterol Sulfate (Albuterol Sulfate 8 Gm Inhaler (60 Puffs)) 4 - 8 puff INHALATION Q4H PRN PRN PRN Reason: Dyspnea, wheezing Clopidogrel Bisulfate (Clopidogrel Bisulfate 75 Mg Tablet) 75 mg PO DAILY [facility] Last Admin: 05/11/20 09:43 Dose: 75 mg Documented by: Dexamethasone (Dexamethasone 4 Mg Tablet) 6 mg PO DAILY [facility] Stop: 05/18/20 10:01 Last Admin: 05/11/20 09:42 Dose: 6 mg Documented by: Enoxaparin Sodium (Enoxaparin 30 Mg/0.3 Ml Syringe) 30 mg SC BID [facility] Last Admin: 05/11/20 20:53 Dose: 30 mg Documented by: Hydralazine HCl (Hydralazine 20 Mg/Ml Vial) 10 mg IV Q4H PRN PRN PRN Reason: SBP > 160 Hydrochlorothiazide (Hydrochlorothiazide 12.5mg) 12.5 mg PO DAILY [facility] Last Admin: 05/11/20 09:43 Dose: 12.5 mg Documented by: Remdesivir 100 mg/ Sodium (Chloride) 250 mls @ 125 mls/hr IV DAILY [facility]; Protocol Stop: 05/13/20 11:59 Last Infusion: 05/11/20 11:45 Dose: Infused Documented by: Insulin Human Lispro (Insulin Lispro 100 Unit/Ml Insuln.Pen) 0 unit SC ACHS [facility]; Protocol Last Admin: 05/12/20 06:40 Dose: Not Given Documented by: Losartan Potassium (Losartan Potassium 50 Mg Tablet) 50 mg PO DAILY [facility] Last Admin: 05/11/20 09:43 Dose: 50 mg Documented by: Metoprolol Tartrate (Metoprolol Tartrate 50 Mg Tablet) 50 mg PO BID [facility] Last Admin: 05/11/20 20:37 Dose: 50 mg Documented by: Nitroglycerin (Nitroglycerin (Inpatient Use) 0.4 Mg Tab.Subl) 0.4 mg SUBLINGUAL Q5M PRN PRN Reason: CARDIAC/CHEST PAIN Nystatin (Nystatin Powder 15gm Bottle) 1 applic TOPICAL TID [facility]; Protocol Last Admin: 05/12/20 06:39 Dose: 1 applicatio Documented by: Ondansetron HCl (Ondansetron 4 Mg/2 Ml Vial) 4 mg IV Q8H PRN PRN PRN Reason: NAUSEA/VOMITING Pantoprazole Sodium (Pantoprazole Sodium 20 Mg Tablet) 20 mg PO DAILY [facility] Last Admin: 05/11/20 09:42 Dose: 20 mg Documented by: Pioglitazone HCl (Pioglitazone Hydrochloride 15 Mg Tablet) 15 mg PO DAILY [facility] Last Admin: 05/11/20 09:42 Dose: 15 mg Documented by: Pravastatin Sodium (Pravastatin 40 Mg Tablet) 40 mg PO QHS [facility] Last Admin: 05/11/20 20:37 Dose: 40 mg Documented by: Sertraline HCl (Sertraline 100 Mg Tablet) 100 mg PO DAILY [facility] Last Admin: 05/11/20 09:43 Dose: 100 mg Documented by: Sodium Chloride (0.9% Saline Lock 10 Ml Syringe) 10 - 40 ml IV UD PRN PRN Reason: SALINE FLUSH Last Admin: 05/11/20 09:43 Dose: 10 ml Documented by: STROKE Vital Signs/Narrative: Vital Signs Pulse Resp 05/12/20 06:00 58 L 05/12/20 05:00 18 Medical Necessity - Tobacco Use Smoking Status: Never smoker Tobacco Use: Non-smoker Assessment/Plan All Active Problems COVID-19 (Acute) Ischemic stroke (Acute)
--- NOTE | 2020-05-12 09:32 | NURSING ---
Spoke with pt daughter Ana pt gave permission to give daughter information. Ana states she has co POA paperwork with her sister Kandace. The family does not want for the pt to go to SNF, family is able to help out at home and pt has a energy conservation technician that can help with needs at home. notified SW/CM about pt daughter's request to speak with one of them.
[2020-05-12] MEDS: Losartan Potassium 50 MG Tablet PO (09:49)
[2020-05-12] MEDS: hydroCHLOROthiazide 12.5mg 12.5 MG PO (09:49)
[2020-05-12] MEDS: Pioglitazone Hydrochloride 15 MG Tablet PO (09:49)
[2020-05-12] MEDS: Pantoprazole Sodium 20 MG Tablet PO (09:50)
[2020-05-12] MEDS: Metoprolol Tartrate 50 MG Tablet PO (09:50)
[2020-05-12] MEDS: Sertraline 100 MG Tablet PO (09:50)
[2020-05-12] MEDS: Clopidogrel Bisulfate 75 MG Tablet PO (09:50)
[2020-05-12] MEDS: Enoxaparin 30 MG/0.3 ML Syringe SC (09:50)
[2020-05-12] MEDS: 0.9% Saline Lock 10 ML Syringe IV (10:00)
[2020-05-12] MEDS: dexAMETHasone 4 MG Tablet 6 MG PO (10:00)
--- NOTE | 2020-05-12 10:32 | CASEMGMT ---
Social Work Message received that pt dgt Ana would like to speak with BJ. No HCPOA paperwork in pt charge. Phone call placed to pt , next of kin, and informed that Ana would like to speak with BJ. Alise agreeable for BJ to contact Ana and gave permission for Ana to make discharge decisions. BJ placed phone call to Ana who states the family does not want pt to go to a SNF. Ana states pt will return to his home with his and pt has 4 local children who will be assisting as needed. Pt does have a wheeled walker and hospital bed and he and his live in a small home that allows for ambulation at short distances. JB spoke with Ana about home health and she is agreeable. BJ attempted to provide list of Home Health Providers that include quality and resource use data, however, Ana declined information stating she does not care which company is used. BJ also informed Ana that pt would likely also be discharged with home oxygen. Ana states that she has left a VM with Shavonne Babcock CM at [facility] who is 's CM to notify that increased services are needed. Referral made to Emma at [facility] for PT/OT/SN. Return call and they are able accept pt with start of service tomorrow. RNCM updated on Ana wishes and will address home O2 needs. BJ spoke with Iris at [facility] and cancelled referral. BJ spoke with Lalitha Lu pt CM at [facility] and informed her of pt discharge. Meals and medical alert will be restarted. Although pt has been approved for hours, it will be difficult to find coverage staff quickly for home aids. Return call to Ana and updated on above. Plan: Home with [facility] PT/OT/SN, home oxygen and services from [facility]. MALENA Banks
--- NOTE | 2020-05-12 10:37 | PCM.DC ---
- Discharge Diagnoses Current Active Problems: Current Active and Chronic Problems 1. Acute Hypoxia secondary to Acute Bilateral Pneumonia secondary to Acute Viral Syndrome, COVID-19 2. Hypertension 3. Diabetes mellitus type II 4. PAD 5. Anxiety and depression 6. GERD 7. History of AAA 8. Hyperlipidemia 9. Obesity You will use the following diet at home:: Calorie/Carbohydrate Controlled (specify 1200, 1400, etc) - ADA 1800/cardiac diet recommended. Your food should be the consistency of: Regular Your liquids should be the consistency of: Regular/Thin Discharge Activity: - - Encourage continued routine activity in the home. Out of bed with all meals and routine wlks around your home. Continue using your incentive spirometer 10x/hr from 7 am to 7 pm. Continue usage of your oxygen continuously until you are cleared to be weaned to room air. May resume sexual activity in: - - Continue isolation x 1 additional week per infectious disease. Weight Bearing Status: Weight bearing as tolerated Call your doctor if you observe: Fever of 101 or Higher, Inability to urinate, Inability to have a bowel movement, Shortness of breath, Dizziness, Fainting spells, Chest pain, Uncontrolled pain Instructions: Coronavirus Disease 2019 (COVID-19): Overview, Coronavirus Disease 2019 (COVID-19): Caring for Yourself or Others, Coronavirus Disease 2019 (COVID-19): Prevention, COVID-19: Lying in a Prone Position (Proning), Traveling with Oxygen, Using Oxygen Safely, Using Oxygen at Home Additional Instructions: PLEASE CONTINUE OXYGEN USAGE UNTIL WEANED TO ROOM AIR BY YOUR PHYSICIAN. PLEASE COMPLETE YOUR 10 DAY COURSE OF DECADRON. PLEASE MAINTAIN ISOLATION PRECAUTIONS FOR 1 ADDITIONAL WEEK UPON YOUR DISCHARGE PER INFECTION DISEASE. WE STRONGLY ADVISE YOU OBTAIN A FINGER PULSE OXIMETER FOR HOME AND YOU MAY ASSESS YOUR OXYGENATION STATUS IF YOU FEEL SHORT OF BREATH. KEEP A LOG OF YOUR LEVELS WITH REST AND ACTIVITY. IF YOU NOTICE YOU OXYGENATION DECREASING AND YOU NEED TO INCREASE YOUR OXYGEN SUPPLEMENTATION IMMEDIATELY CONTACT YOUR PRIMARY CARE PHYSICIAN OR COME TO THE EMERGENCY ROOM. PLEASE CONTINUE THE ELIQUIS BLOOD THINNER FOR 14 DAYS UPON YOUR DISCHARGE COVID MAKES YOU PRONE TO CLOTS. Allergies/Adverse Reactions: Allergies egg Allergy (Verified 04/28/15 10:54) Nausea/Vom/Diarrhea milk Allergy (Verified 04/28/15 16:48) Nausea/Vom/Diarrhea Medications to take at Discharge Losartan/Hydrochlorothiazide [Hyzaar 50-12.5 Tablet] 1 tab PO DAILY 04/27/15 Pravastatin [Pravachol] 40 mg PO QHS 04/27/15 metFORMIN HCl [Glucophage] 500 mg PO BIDCM 04/27/15 Clopidogrel Bisulfate [Plavix] 75 mg PO DAILY #30 tablet 04/29/15 Metoprolol Tartrate [Lopressor (Beta Vika)] 50 mg PO BID 05/09/20 Omeprazole 20 mg PO DAILY 05/09/20 Pioglitazone [Actos] 15 mg PO DAILY 05/09/20 Sertraline HCl 100 mg PO DAILY 05/09/20 Albuterol Inhaler [Ventolin Hfa] 4 - 8 puff INHALATION Q4H PRN PRN #1 inhaler 05/12/20 Apixaban [Eliquis] 2.5 mg PO BID #28 tab 05/12/20 Dexamethasone [Decadron] 6 mg PO DAILY #7 tab 05/12/20 Nystatin Powder [Mycostatin Powder] 1 applic TOPICAL TID #1 bottle 05/12/20 The following prescriptions were given: Dexamethasone [Decadron] 6 mg PO DAILY #7 tab Transmission Status: Pending to [facility] Apixaban [Eliquis] 2.5 mg PO BID #28 tab Transmission Status: Pending to [facility] Nystatin Powder [Mycostatin Powder] 1 applic TOPICAL TID #1 bottle Transmission Status: Pending to [facility] Albuterol Inhaler [Ventolin Hfa] 4 - 8 puff INHALATION Q4H PRN PRN #1 inhaler PRN Reason: Dyspnea, wheezing Transmission Status: Pending to [facility] Primary Care Physician: Rosendo Espinosa MD [Primary Care Provider] - Please follow up with your Primary Care Physician in: Follow-up within 3-5 days of discharge to review admission. Test Results: Test results from this visit will be discussed in further detail at your follow-up appointment, if applicable. Proposed Discharge Date: 05/12/20
--- NOTE | 2020-05-12 10:45 | DS.PCM_ITS ---
Discharge Date and Diagnosis - Problem List Patient Problems: Active and Suspected Problems COVID-19 (Acute) Date of Admission: 05/09/20 Date of Discharge: 05/12/20 - Primary Discharge Diagnosis Acute Problems: Active Problems 1. Acute Hypoxia secondary to Acute Bilateral Pneumonia secondary to Acute Viral Syndrome, COVID-19 2. Hypertension 3. Diabetes mellitus type II 4. PAD 5. Anxiety and depression 6. GERD 7. 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 ED work-up including chest x-ray with no acute cardiopulmonary findings, CTPA with no evidence of pulmonary emboli, evidence cardiomegaly, evidence ascending aortic aneurysm without dissection, markedly elevated left hemidiaphragm with low right lung volume, scattered bilateral pulmonary opacities worse on the right consistent with Covid, D-dimer 0.83, fibrinogen 557, CBC with WC 4.2, hemoglobin 12.2, platelet 143 with lym phopenia, LDH 175, troponin less than 0.015, CRP 39.20, BNP 30.3, procalcitonin 0.14, EKG sinus tachycardia with no acute evidence of ischemia. Patient admitted to the Covid unit, maintained on oxygen with wean as tolerated to room air, PRN albuterol, HOB, IS parameters w/ sputum culture with normal respiratory kobi, respiratory viral panel negative, noted negative urine antigens, continued supportive care including q 2 hour turning, infectious disease consulted and followed with requested 20 total days of quarantine, continued plan 10 days of dexamethasone and while inpatient administration of remdesivir, maintained on Lovenox 30 mg twice daily with CTPA with no evidence of acute pulmonary emboli transitioned to eliquis 2.5 mg BID upon discharge x 14 additional days. Given patient clinical improvement, oxygenation assessment performed 05/12/20 with noted 2L NC at rest and 4L NC with activity to improve to 92% therefore oxygen set-up for discharge as well as home health given family a nd patient insistence he be discharged to home instead of prior discussed SNF. Patient noted feeling safe for this plan with family member assistance. DAY OF DISCHARGE PROGRESS NOTE: Subjective: Patient without acute event overnight per self and nursing report. Patient improved since day prior even with less dyspnea with exertion, maintained 92% on 4 L nasal cannula with exertion. Patient reports less coughing and less dyspnea. Patient using walker and does require some assistance but states adamantly that he would like to go home with home health instead of previously discussed [facility] facility placement. Patient denies fever, chills, nausea, emesis, abdominal pain, chest pain. Patient agreeable to discharge to home with home health as noted. Patient will be discharged with follow-up with primary care physician within 3-5 days. Objective: T 90.1, heart rate 70, BP 139/74, respiratory rate 20, 95% on 2 L nasal cannula at rest. Physical Examination: General: awake, alert, oriented x 3 and cooperative, seated upright in the [facility] surgical bedside chair, less fatigued, more interactive. Skin: normal color, turgor, no icterus, cyanosis. HEENT: AT/NC, EOMI, PERRLA, MMM. Lungs: Diminished breath sounds, greater bases, moderate effort, no rales, ronchi or wheezing. Heart: Regular rate and rhythm; no gallop, rub audible. Abdomen: soft, NTTP, ND, normal BS. Extremities: no cyanosis, clubbing, or edema. Neurological: patient awake, alert, oriented as noted; cognitive function intact; pupils equally reactive to light and accomodation; cranial nerves II-XII grossly normal, moving all 4 extremities, no focal deficits, strength remains moderately globally decreased secondary to acute presentation. Psychiatric: affect appears less fatigued, more interactive, no acute evidence of depressive or anxiety feelings. Assessment and Plan: Please see hospital summary above. Patient Problems: Active and Suspected Problems COVID-19 (Acute) - Physical Exam Vitals/I&O's: Vital Signs Temp Pulse Resp BP Pulse Ox 98.1 F 70 20 H 139/74 H 95 05/12/20 08:07 05/12/20 09:50 05/12/20 08:10 05/12/20 08:07 05/12/20 08:08 Oxygen Flow Rate (L/min) [ 4 AMBULATION with Oxygen] Oxygen Flow Rate (L/min) [ 0 AMBULATING on Room Air] Oxygen Flow Rate (L/min) [At 2 REST on Room Air] Oxygen Flow Rate (L/min) 2 Oxygen Delivery Method Nasal Cannula Weight: 258 lb 13.163 oz Body Mass Index (BMI) 37.1 Finger Stick Blood Glucose 252 Intake and Output for Last 24 Hours 05/10/20 05/11/20 05/12/20 23:59 23:59 23:59 Intake Total 2317.92 / 2557.92 1490 / 1730 420 / 420 Output Total 450 / 450 675 / 1025 800 / 800 Balance 1867.92 / 2107.92 815 / 705 -380 / -380 Microbiology Past 72 Hours 05/10/20 08:44 Sputum, Expectorated/Coughed Gram Stain - Final 05/10/20 08:44 Sputum, Expectorated/Coughed Respiratory Culture - Prelimina ry Appears to be normal respiratory kobi. Further studies to follow. 05/10/20 07:35 Mucosa - Nasopharyngeal Respiratory Panel (PCR) - Final 05/10/20 06:00 Urine, Clean Catch Legionella Antigen - Final 05/10/20 06:00 Urine, Clean Catch Streptococcus pneumoniae Antigen (M - Final 05/09/20 19:57 Mucosa - Nasopharyngeal SARS-CoV-2 Antigen (Rapid) - Final SARS-CoV-2 (COVID 19) 05/09/20 19:57 Mucosa - Nasopharyngeal Influenza Types A,B Direct FA (MARIA DE JESUS) - Final Laboratory Results 05/11/20 11:05: POC Glucose 133 H 05/11/20 16:42: POC Glucose 188 H 05/11/20 20:35: POC Glucose 176 H 05/12/20 05:30: WBC 5.4, RBC 3.91 L, Hgb 11.9 L, Hct 38.2 L, MCV 97.7 H, MCH 30.4, MCHC 31.2 L, RDW Std Deviation 49.3 H, RDW Coeff of Kj 13.9, Plt Count 199, MPV 10.6, Immature Gran % (Auto) 0.400, Neut % (Auto) 69.1, Lymph % (Auto) 14.5 L, Kings % (Auto) 15.8 H, Eos % (Auto) 0.0, Baso % (Auto) 0.2, Absolute Neuts (auto) 3.8, Absolute Lymphs (auto) 0.79 L, Nucleated RBC % 0 05/12/20 05:30: Sodium 136, Potassium 4.1, Chloride 103, Carbon Dioxide 28.0, Anion Gap 5, BUN 29 H, Creatinine 0.99, Estim Creat Clear Calc 63.50, Est GFR (MDRD) Af Amer 94, Est GFR (MDRD) Non-Af 78, BUN/Creatinine Ratio 29.3 H, Glucose 132 H, Calcium 8.5, Total Bilirubin 0.30, AST 39 H, ALT 47, Alkaline Phosphatase 59, Total Protein 6.7, Albumin 2.8 L, Globulin 3.9, Albumin/Globulin Ratio 0.7 L Current Medications Acetaminophen (Acetaminophen 325 Mg Tablet) 650 mg PO Q6H PRN PRN PRN Reason: Pain Score 1-10/Temp > 100.7 F Albuterol Sulfate (Albuterol Sulfate 8 Gm Inhaler (60 Puffs)) 4 - 8 puff INHALATION Q4H PRN PRN PRN Reason: Dyspnea, wheezing Clopidogrel Bisulfate (Clopidogrel Bisulfate 75 Mg Tablet) 75 mg PO DAILY [facility] Last Admin: 05/12/20 09:50 Dose: 75 mg Documented by: Dexamethasone (Dexamethasone 4 Mg Tablet) 6 mg PO DAILY [facility] Stop: 05/18/20 10:01 Last Admin: 05/12/20 10:00 Dose: 6 mg Documented by: Enoxaparin Sodium (Enoxaparin 30 Mg/0.3 Ml Syringe) 30 mg SC BID [facility] Last Admin: 05/12/20 09:50 Dose: 30 mg Documented by: Hydralazine HCl (Hydralazine 20 Mg/Ml Vial) 10 mg IV Q4H PRN PRN PRN Reason: SBP > 160 Hydrochlorothiazide (Hydrochlorothiazide 12.5mg) 12.5 mg PO DAILY [facility] Last Admin: 05/12/20 09:49 Dose: 12.5 mg Documented by: Remdesivir 100 mg/ Sodium (Chloride) 250 mls @ 125 mls/hr IV DAILY [facility]; Protocol Stop: 05/13/20 11:59 Last Admin: 05/12/20 09:50 Dose: 125 mls/hr Documented by: Insulin Human Lispro (Insulin Lispro 100 Unit/Ml Insuln.Pen) 0 unit SC ACHS [facility]; Protocol Last Admin: 05/12/20 06:40 Dose: Not Given Documented by: Losartan Potassium (Losartan Potassium 50 Mg Tablet) 50 mg PO DAILY [facility] Last Admin: 05/12/20 09:49 Dose: 50 mg Documented by: Metoprolol Tartrate (Metoprolol Tartrate 50 Mg Tablet) 50 mg PO BID [facility] Last Admin: 05/12/20 09:50 Dose: 50 mg Documented by: Nitroglycerin (Nitroglycerin (Inpatient Use) 0.4 Mg Tab.Subl) 0.4 mg SUBLINGUAL Q5M PRN PRN Reason: CARDIAC/CHEST PAIN Nystatin (Nystatin Powder 15gm Bottle) 1 applic TOPICAL TID [facility]; Protocol Last Admin: 05/12/20 06:39 Dose: 1 applicatio Documented by: Ondansetron HCl (Ondansetron 4 Mg/2 Ml Vial) 4 mg IV Q8H PRN PRN PRN Reason: NAUSEA/VOMITING Pantoprazole Sodium (Pantoprazole Sodium 20 Mg Tablet) 20 mg PO DAILY [facility] Last Admin: 05/12/20 09:50 Dose: 20 mg Documented by: Pioglitazone HCl (Pioglitazone Hydrochloride 15 Mg Tablet) 15 mg PO DAILY [facility] Last Admin: 05/12/20 09:49 Dose: 15 mg Documented by: Pravastatin Sodium (Pravastatin 40 Mg Tablet) 40 mg PO QHS [facility] Last Admin: 05/11/20 20:37 Dose: 40 mg Documented by: Sertraline HCl (Sertraline 100 Mg Tablet) 100 mg PO DAILY [facility] Last Admin: 05/12/20 09:50 Dose: 100 mg Documented by: Sodium Chloride (0.9% Saline Lock 10 Ml Syringe) 10 - 40 ml IV UD PRN PRN Reason: SALINE FLUSH Last Admin: 05/12/20 10:00 Dose: 10 ml Documented by: Discharge Activity: - - Encourage continued routine activity in the home. Out of bed with all meals and routine wlks around your home. Continue using your incentive spirometer 10x/hr from 7 am to 7 pm. Continue usage of your oxygen continuously until you are cleared to be weaned to room air. May resume sexual activity in: - - Continue isolation x 1 additional week per infectious disease. Weight Bearing Status: Weight bearing as tolerated Call your doctor if you observe: Fever of 101 or Higher, Inability to urinate, Inability to have a bowel movement, Shortness of breath, Dizziness, Fainting spells, Chest pain, Uncontrolled pain Home Medications: Medications to take at Discharge Losartan/Hydrochlorothiazide [Hyzaar 50-12.5 Tablet] 1 tab PO DAILY 04/27/15 Pravastatin [Pravachol] 40 mg PO QHS 04/27/15 metFORMIN HCl [Glucophage] 500 mg PO BIDCM 04/27/15 Clopidogrel Bisulfate [Plavix] 75 mg PO DAILY #30 tablet 04/29/15 Metoprolol Tartrate [Lopressor (beta carrillo)] 50 mg PO BID 05/09/20 Omeprazole 20 mg PO DAILY 05/09/20 Pioglitazone [Actos] 15 mg PO DAILY 05/09/20 Sertraline HCl 100 mg PO DAILY 05/09/20 Albuterol Inhaler [Ventolin Hfa] 4 - 8 puff INHALATION Q4H PRN PRN #1 inhaler 05/12/20 Apixaban [Eliquis] 2.5 mg PO BID #28 tab 05/12/20 Dexamethasone [Decadron] 6 mg PO DAILY #7 tab 05/12/20 Nystatin Powder [Mycostatin Powder] 1 applic TOPICAL TID #1 bottle 05/12/20 Following Prescriptions Were Given to Patient: Dexamethasone [Decadron] 6 mg PO DAILY #7 tab Transmission Status: Received by [facility] Apixaban [Eliquis] 2.5 mg PO BID #28 tab Transmission Status: Received by [facility] Nystatin Powder [Mycostatin Powder] 1 applic TOPICAL TID #1 bottle Transmission Status: Received by [facility] Albuterol Inhaler [Ventolin Hfa] 4 - 8 puff INHALATION Q4H PRN PRN #1 inhaler PRN Reason: Dyspnea, wheezing Transmission Status: Received by [facility] Primary Care Physician: Rosendo Espinosa MD [Primary Care Provider] - Please follow up with your Primary Care Physician in: Follow-up within 3-5 days of discharge to review admission. Patient Instructions: Coronavirus Disease 2019 (COVID-19): Overview, Coronavirus Disease 2019 (COVID-19): Prevention, Coronavirus Disease 2019 (COVID-19): Caring for Yourself or Others, COVID-19: Lying in a Prone Position (Proning), Traveling with Oxygen, Using Oxygen Safely, Using Oxygen at Home Disposition: Home with Home Health Minutes spent on discharge:: 35 Patient Condition:: Fair Medical Necessity - Tobacco Use Smoking Status: Never smoker Tobacco Use: Non-smoker Meaningful Use Info Meaningful Use Diagnoses (Choose all that apply): None applicable Inpatient E&M: 01114 Disch Hosp
--- NOTE | 2020-05-12 11:12 | CASEMGMT ---
RN CM Note: Call to Ana, daughter to review list of DME providers for home oxygen via phone. Daughter would like [facility] for DME provider. Reviewed procedure with her re: portable tank to hospital, and [facility] will need to be updated when pt is home for regional flatbed truck driver to come. Referral and script faxed. Marie ESCOBAR RN ACM
--- NOTE | 2020-05-12 11:47 | CASEMGMT ---
RN CM Note: call to retail pharmacy and no copays for pt's prescriptions. Marie ESCOBAR RN ACM
[2020-05-12 17:21] LABS: Bedside Glucose 126 mg/dL (70-110)
--- NOTE | 2020-05-15 14:19 | CASEMGMT ---
GRACIELA MORAES DC PHONE CALL DC DATE: 05/12/20 DC DISPOSITION: Home with home oxygen and HHC thru [facility]. DC DIAGNOSIS: SARS COVID 2 Intro role of CM to patient's via phone. states the C nurse was already there today and they are doing fine. the patient is feeling better and no questions or concerns. Reviewed if questions arise, they can contact the [facility] service or physician office. Marie ESCOBAR RN ACM
== END 2020-05-12 14:43 | disposition home or self-care (01) | DRG 177 ==
LOC: ED 22:35 → MS2 22:48
PROVIDERS: Admitting Provider Student in an Organized Health Care Education/Training Program; Emergency Provider Emergency Medicine; PCP Internal Medicine; Visit Provider Family Medicine
DX: U07.1 COVID-19 (principal); J12.82 Pneumonia due to coronavirus disease 2019; J44.0 Chronic obstructive pulmonary disease with (acute) lower respiratory infection; R09.02 Hypoxemia; R06.89 Other abnormalities of breathing; E11.51 Type 2 diabetes mellitus with diabetic peripheral angiopathy without gangrene; E78.5 Hyperlipidemia, unspecified; F32.9 Major depressive disorder, single episode, unspecified; F41.9 Anxiety disorder, unspecified; I71.4 Abdominal aortic aneurysm, without rupture; I25.10 Atherosclerotic heart disease of native coronary artery without angina pectoris; I10 Essential (primary) hypertension; K21.9 Gastro-esophageal reflux disease without esophagitis; Z79.84 Long term (current) use of oral hypoglycemic drugs; Z79.899 Other long term (current) drug therapy; Z86.73 Personal history of transient ischemic attack (TIA), and cerebral infarction without residual deficits; Z79.02 Long term (current) use of antithrombotics/antiplatelets
CPT/HCPCS: 36415; 71045; 71275; 80048; 80053; 82962; 83615; 83735; 83880; 84075; 84145; 84484; 85025; 85379; 85384; 86140; 87070; 87205; 87426; 87449; 87633; 87804; 93005; 97110; 97116; 97162; 97166; 97530; 97535; 97802; 99285; J7030; J7040; J7050; Q9967; A4216